=== PATIENT | male | born 1940 | race Caucasian/White ===

== ENCOUNTER 2019-09-13 07:05 | Day surgery (SDC) | payer MEDICARE ==
[2019-09-13] MEDS ORDERED: Sodium Chloride 0.9% 10 ML Syringe FLUSH PRN (07:30)
--- NOTE | 2019-09-13 10:54 | OR ---
DATE OF PROCEDURE: 09/13/2019 SURGEON: Fabiola Peres MD POSTOPERATIVE CARE: Postoperative care will be provided mainly at the [address] [place] [address] [facility] in conjunction with [facility]. PREOPERATIVE DIAGNOSIS: Cataract, left eye. POSTOPERATIVE DIAGNOSIS: Cataract, left eye. PROCEDURE: Phacoemulsification with intraocular lens placement, left eye. ANESTHESIA: Topical and intracameral. ESTIMATED BLOOD LOSS: Minimal. COMPLICATIONS: None. PATHOLOGY SPECIMENS: None. SURGICAL FINDINGS: None. INDICATION FOR PROCEDURE: The patient is a 78-year-old male with history of a visually significant cataract in the left eye, which interfered with activities of daily living. This consisted of a nuclear sclerosis cataract. Following careful discussion of the risks, benefits and alternatives to cataract extraction with intraocular lens placement including blindness and , the patient elected to proceed, and informed, written consent was obtained prior to the procedure. DESCRIPTION OF THE PROCEDURE: The patient was previously identified, and a valdo placed above the left eye. All sources, including the patient, indicated that the left eye was the correct eye. The patient was subsequently taken to the operating room where standard monitors were applied. The patient was then prepped and draped in the usual sterile fashion for ophthalmic surgery. Attention was first directed at the 12 o'clock position where a paracentesis port was fashioned. Shugar solution followed by Viscoat was instilled into the eye. Attention was then directed to the 8:30 position where a triplanar incision was made in a near-clear manner using a keratome. A continuous capsulorrhexis was then made using a combination of the cystotome and Utrata forceps. Hydrodissection was achieved using a balanced salt solution, and the lens rotated nicely. Phacoemulsification was then done using a modified xamfsd-eos-cylxuld technique without complication. Phaco time was 10.06 CDE. The remaining cortex was removed using the irrigation/aspiration handpiece. Provisc was then instilled into the eye. A Technis lens, model [id number], at 24.5 diopters was then placed in the capsular bag using an [place] injector. The remaining viscoelastic was removed using the irrigation/aspiration forceps. All wounds were then checked and found to be watertight. The lid speculum and drapes were removed. Maxitrol ointment was placed in the patient's left eye, and the eye was shielded. The patient tolerated the procedure well. The patient was instructed to follow up tomorrow. All needle and sponge counts were correct at the end of the procedure. Fabiola Peres MD /[id number]
[2019-09-13 10:57] VITALS: BP 162/81; PULSE 72
== END 2019-09-13 08:40 | disposition home or self-care (01) ==
LOC: JP.SDS 07:05
PROVIDERS: ATTEND Ophthalmology
DX: H25.12 Age-related nuclear cataract, left eye (principal); I10 Essential (primary) hypertension; F17.210 Nicotine dependence, cigarettes, uncomplicated
CPT/HCPCS: V2632

== ENCOUNTER 2019-10-25 05:53 | Day surgery (SDC) | payer MEDICARE ==
[2019-10-25] MEDS ORDERED: Sodium Chloride 0.9% 10 ML Syringe FLUSH PRN (06:30)
[2019-10-25 08:21] VITALS: BP 132/78; PULSE 64
--- NOTE | 2019-10-25 13:48 | OR ---
DATE OF PROCEDURE: 10/25/2019 SURGEON: Fabiola Peres MD POSTOPERATIVE CARE: Postoperative care will be provided mainly at the [address] [place] [address] [facility] in conjunction with [facility]. PREOPERATIVE DIAGNOSIS: Cataract, right eye. POSTOPERATIVE DIAGNOSIS: Cataract, right eye. PROCEDURE: Phacoemulsification with intraocular lens placement, right eye. ANESTHESIA: Topical and intracameral. ESTIMATED BLOOD LOSS: Minimal. COMPLICATIONS: None. PATHOLOGY SPECIMENS: None. SURGICAL FINDINGS: None. INDICATION FOR PROCEDURE: The patient is a 79-year-old male with history of a visually significant cataract in the right eye, which interfered with activities of daily living. This consisted of a nuclear sclerosis cataract. Following careful discussion of the risks, benefits and alternatives to cataract extraction with intraocular lens placement including blindness and , the patient elected to proceed, and informed, written consent was obtained prior to the procedure. DESCRIPTION OF THE PROCEDURE: The patient was previously identified, and a valdo placed above the right eye. All sources, including the patient, indicated that the right eye was the correct eye. The patient was subsequently taken to the operating room where standard monitors were applied. The patient was then prepped and draped in the usual sterile fashion for ophthalmic surgery. Attention was first directed at the 12 o'clock position where a paracentesis port was fashioned. Shugar solution followed by Viscoat was instilled into the eye. Attention was then directed to the 8:30 position where a triplanar incision was made in a near-clear manner using a keratome. A continuous capsulorrhexis was then made using a combination of the cystotome and Utrata forceps. Hydrodissection was achieved using a balanced salt solution, and the lens rotated nicely. Phacoemulsification was then done using a modified nrulga-[id number]-tttoagu technique without complication. Phaco time was 7.08 CDE. The remaining cortex was removed using the irrigation/aspiration handpiece. Provisc was then instilled into the eye. A Technis lens, model [id number], at 24.5 Diopters was then placed in the capsular bag using an [place] injector. The remaining viscoelastic was removed using the irrigation/aspiration forceps. All wounds were then checked and found to be watertight. The lid speculum and drapes were removed. Maxitrol ointment was placed in the patient's right eye, and the eye was shielded. The patient tolerated the procedure well. The patient was instructed to follow up tomorrow. All needle and sponge counts were correct at the end of the procedure. There were no surgical findings. Fabiola Peres MD /[id number]
== END 2019-10-25 08:20 | disposition home or self-care (01) ==
LOC: JP.SDS 05:53
PROVIDERS: ATTEND Ophthalmology
DX: H25.11 Age-related nuclear cataract, right eye (principal); I10 Essential (primary) hypertension
CPT/HCPCS: 66984; V2632

== ENCOUNTER 2020-08-18 10:24 | Day surgery (SDC) | payer MEDICARE ==
[2020-08-18] MEDS ORDERED: Lactated Ringers 1,000 ML IV SCH (11:15)
[2020-08-18] MEDS ORDERED: ceFAZolin 2 GM in Premix Bag 1 BAG IV ONE (11:15)
[2020-08-18] MEDS ORDERED: Propofol 200 MG/20 ML SDV ONE ×2 (11:21→12:37)
[2020-08-18] MEDS ORDERED: Midazolam 1 MG/ML 2 ML SDV ONE (11:21)
[2020-08-18] MEDS ORDERED: fentaNYL 100 MCG/2 ML SDV ONE (11:21)
[2020-08-18] MEDS ORDERED: Bupivacaine 0.5% 30 ML SDV ONE (12:01)
[2020-08-18] MEDS ORDERED: Lidocaine 2% 20 ML MDV ONE (12:01)
--- NOTE | 2020-08-18 14:02 | OR ---
DATE OF PROCEDURE: 08/18/2020 SURGEON: Horace Rogers DPM [employer] SPECIALIST: Dr. Michael Vu. PREOPERATIVE DIAGNOSIS: Mass, right foot, 3rd intermetatarsal space. POSTOPERATIVE DIAGNOSIS: Mass, right foot, 3rd intermetatarsal space. PROCEDURE: Excision of soft-tissue mass, right foot. ANESTHESIA: Local with IV sedation. HEMOSTASIS: Obtained with an ankle tourniquet on the right ankle at 250 mmHg. ESTIMATED BLOOD LOSS: 5 mL. MATERIALS: None. INJECTABLES: A total of 15 mL of a 1:1 mixture of lidocaine 2% plain and Marcaine 0.5% plain was injected preoperatively. PATHOLOGY: Soft tissue mass was sent. Pictures of the soft-tissue mass were taken after removal and measured approximately 6 cm x 2 cm wide and approximately 1 cm deep. CONDITION: Stable. INDICATIONS FOR SURGERY: Painful soft tissue mass, right foot, 3rd intermetatarsal space, that was unresponsive to conservative measures. PROCEDURE IN DETAIL: The patient was brought to the operating room and placed on the operating table in the supine position. Following IV sedation, anesthesia was obtained with a total of 15 mL of a 1:1 mixture of lidocaine 2% plain and Marcaine 0.5% plain. The right foot was then scrubbed, prepped, and draped in the usual aseptic manner, raised to 60 degrees for hemostasis, and exsanguinated using Esmarch bandage. Tourniquet was inflated. Foot was lowered to the table. Skin incision was made over the most prominent area of the mass in the 3rd intermetatarsal space and deepened through subcutaneous tissues with care taken to identify and retract all vital neurovascular structures and tendons. The mass was carefully removed with both sharp and blunt dissection. The incision length was approximately 6 cm long from dorsal proximal to plantar proximal, and the mass tracked plantarly and proximally underneath the 3rd metatarsal shaft. We carefully removed the entire encapsulated mass. There was some brown waxy material that came out of it. Pictures of it were taken on the back table and x-ray ruler and then it was sent for pathology. The incision was then checked both visually and through palpation to make sure no masses were left, and none were found. The incision was then flushed out with copious amounts of sterile saline. The closure to suture back together the 3rd and 4th metatarsal to reapproximate the deep transverse intermetatarsal ligament was made with 3-0 Vicryl. Subcutaneous stitches were done with 3-0 Vicryl in a box stitch type closure, and then skin closure was obtained with horizontal mattress stitches with 3-0 nylon dorsally and in the interdigital space, and then plantarly, 3-0 nylon was used with simple interrupted stitches, and then it was dressed with Xeroform, 4x4s, Kerlix, and sterile cast padding. The patient was returned to the recovery room with vital signs stable and vascular status intact to both feet. The patient was told to maintain partial weightbearing on the heel only while wearing his Cam boot and walk with a walker and return to clinic for followup in one week with Dr. Michael Vu in [place] and then in [address] Rogers. The patient was told to call prior to that if he had any other questions or concerns. The patient was told to go to the emergency room immediately if he has any nausea, vomiting, fever, chills, chest pain, calf pain, or difficulty breathing. Horace Rogers DPM /[id number]
[2020-08-18 14:48] VITALS: BP 142/67; PULSE 50
== END 2020-08-18 15:09 | disposition home or self-care (01) ==
LOC: JP.SDS 10:24
PROVIDERS: ATTEND Podiatrist Foot & Ankle Surgery
DX: M79.89 Other specified soft tissue disorders (principal); F17.210 Nicotine dependence, cigarettes, uncomplicated; I10 Essential (primary) hypertension; E78.5 Hyperlipidemia, unspecified; Z79.82 Long term (current) use of aspirin; Z79.899 Other long term (current) drug therapy; Z01.812 Encounter for preprocedural laboratory examination; Z20.828 Contact with and (suspected) exposure to other viral communicable diseases
CPT/HCPCS: 28041; J2001; J2250; J2704; J3010; J3490; J7120; U0002; 88305